=== PATIENT | male | born 1950 | race Caucasian/White ===

== ENCOUNTER 2016-10-23 09:46 | Day surgery (SDC) | payer OTHER ==
[~2016-10-23 09:46] MED LIST: Buffered Lidocaine 1% SYRIN* 3 ML/SYR SYRINGE INTRADERM ONE; ceFAZolin 2 GM PREMIX(*) 2 GM/50 ML BAG IVPB ONE
[2016-10-23] MEDS ORDERED: Bupivacaine 0.25% EPI 200,000* 30 ML SDV ONE (12:04)
[2016-10-23] MEDS ORDERED: Midazolam* 1 MG/ML 2 ML VIAL (2 MG) ONE (12:12)
[2016-10-23] MEDS ORDERED: fentaNYL* 50 MCG/ML 2 ML VIAL (100 MCG VIAL) ONE ×2 (12:12→13:02)
[2016-10-23] MEDS ORDERED: Dexamethasone IV* 4 MG/ML 1 ML (4 MG) ONE (12:49)
[2016-10-23] MEDS ORDERED: Propofol* 10 MG/ML 20 ML BTL IV PUSH ONE (12:49)
[2016-10-23] MEDS ORDERED: Lidocaine 2% PF * 5 ML VIAL ONE (12:49)
[2016-10-23] MEDS ORDERED: EPHEDrine (Pressors)* 50 MG/ML VIAL ONE (12:49)
[2016-10-23] MEDS ORDERED: Ondansetron INJ* 2 MG/ML VIAL ONE (12:49)
[2016-10-23] MEDS ORDERED: Metoclopramide IV* 5 MG/ML 2 ML VIAL IV PRN (13:15)
[2016-10-23] MEDS ORDERED: HYDROmorphone* 1 MG/ML 1 ML SYR IV PRN (13:15)
[2016-10-23] MEDS ORDERED: Scopolamine 1.5 mg* PATCH TRANSDERM PRN (13:15)
[2016-10-23] MEDS ORDERED: fentaNYL* 50 MCG/ML 2 ML VIAL (100 MCG VIAL) IV PRN (13:15)
--- NOTE | 2016-10-23 13:29 | SURGPN ---
Brief Operative Note - Surgery Procedures: Procedures Pre-OP Diagnoses: Right inguinal hernia Post-op Diagnosis: same Procedure: Laparoscopic right inguinal hernia repair with mesh Surgeon: Solo Asst: Castillo RASHEED Anethesia: MAZIN Bautista EBL: minimal IVF: 900cc LR Specimen: none Drains: none
[2016-10-23] MEDS ORDERED: HYDROmorphone* 1 MG/ML 1 ML SYR ONE (14:20)
[2016-10-23 15:20] VITALS: BP 117/74
--- NOTE | 2016-10-23 21:49 | OP ---
DATE OF OPERATION: 10/23/16 - [facility] DATE OF : 46 SURGEON: Osmel Banda MD OUTSOLE SKIVER: WILI Rees ANESTHESIOLOGIST: Dr. Bautista. ANESTHESIA: General. PRE-OP DIAGNOSIS: Right inguinal hernia. POST-OP DIAGNOSIS: Right inguinal hernia. OPERATIVE PROCEDURE: Laparoscopic right inguinal hernia repair with mesh. ESTIMATED BLOOD LOSS: Minimal. FLUIDS: 800 cc of crystalloid fluid given. SPECIMENS: None. COUNTS: Lap pad count and instrument count correct at the end of the procedure. COMPLICATIONS: No complications. DISPOSITION: The patient was transferred to the PACU in stable condition. DESCRIPTION OF PROCEDURE: The patient was identified in the preoperative area, his right groin marked and case discussed with him and his , consent signed. The patient was taken to the operating suite, placed on the operating room in supine position. Preoperative antibiotics were given. Sequential devices were placed on bilateral lower extremities. General anesthesia was induced and the patient's abdomen was clipped of hair and prepped and draped in a standard surgical fashion. A time-out was performed. An infraumbilical incision was made, this was deepened down to the anterior fascia on the left. This was incised and the rectus pillar on the left was retracted laterally and entry into the preperitoneal plane was made. Finger dissection was then utilized right down to the pubic symphysis. A 12-mm blunt cannula was then inserted and laparoscope was inserted through this and the preperitoneal plane was allowed to insufflate to a pressure of 12 mmHg. The patient tolerated the insufflation well. Blunt camera dissection was then carried out freeing up the preperitoneal space better and identifying freely Vamsi's ligament both on the left and right. Two additional 5-mm trocars were then placed in the lower midline and attention was then turned towards the right side. Clearing off right side of Vamsi's ligament, a direct hernia was identified. This was gently retracted and fully reduced. The epigastric vessels were maintained anteriorly and the Bogros' space was opened up laterally. The full myopectineal orifice was exposed. A small tip of peritoneum seemed to extend up along the vasculature of the spermatic structures. This was bluntly dissected off and the spermatic cord skeletonized. A large Bard 3DMax mesh was then inserted, unrolled, and tacked just above pubic symphysis and also at Vamsi's ligament. It was unrolled out laterally, covering the full myopectineal orifice, it was tacked laterally as well and showed no wrinkling and no tension. The preperitoneal plane was then allowed to collapse. Trocars were removed under direct vision. Anterior fascia at the umbilical port site was reapproximated with an 0 Polysorb suture in a figure-of- eight fashion, and all three skin incisions were reapproximated with 4-0 Monocryl subcuticular sutures followed by Steri-Strips and sterile dressing. The patient tolerated the procedure well and was transferred to the PACU in stable condition. CC: Dr. Chikis Pereira; [facility] [id number]/[facility] #: [id number] DEDRA
== END 2016-10-23 15:21 | disposition home or self-care (01) ==
LOC: OR 09:46
PROVIDERS: ATTEND Surgery
DX: K40.90 Unilateral inguinal hernia, without obstruction or gangrene, not specified as recurrent (principal); E04.1 Nontoxic single thyroid nodule; R13.10 Dysphagia, unspecified
CPT/HCPCS: C1781; J0690; J1100; J1170; J2250; J2405; J2704; J3010